=== PATIENT | male | born 1970 | race African-American/Black ===

== ENCOUNTER → 2023-12-24 08:22 | Outpatient (CLI) | payer OTHER, SELFPAY ==
--- NOTE | 2023-12-24 08:25 | DI.RAD.S_ITS ---
PROCEDURE: XR KNEE RT 3V INDICATIONS: Medial Right knee pain after pivoting 4 days ago TECHNIQUE: 3 views of the knee were acquired. COMPARISON: None. FINDINGS: Bones: No fractures or dislocations. Tricompartmental osteoarthritic changes with moderate medial joint space narrowing. No suspicious bony lesions. Soft tissues: Small joint effusion. No suspicious soft tissue calcifications. IMPRESSION: No acute osseous abnormality. If pain persists with conservative management, consider repeat x-ray in 10-14 days or cross-sectional imaging. Dictated by: Jamey Martin M.D. on 12/24/2023 at 8:57 Approved by: Jamey Martin M.D. on 12/24/2023 at 8:58
== END ==
PROVIDERS: Referring Provider Physician Assistant; Visit Provider Physician Assistant
DX: S86.911A Strain of unspecified muscle(s) and tendon(s) at lower leg level, right leg, initial encounter (principal); M25.461 Effusion, right knee; X58.XXXA Exposure to other specified factors, initial encounter
CPT/HCPCS: 73562